=== PATIENT | male | born 1975 | race Caucasian/White ===

== ENCOUNTER 2022-06-27 00:32 | Emergency (ER) | payer OTHER ==
[~2022-06-27] VITALS: Ht 185.4 cm; Wt 81.0 kg
[2022-06-27] MEDS ORDERED: SIMETHICONE 80MG CHEW TAB PO ONE (01:55)
[2022-06-27] MEDS ORDERED: UNRESOLVED CLARIFICATION ENTRY XX STA (01:57)
[2022-06-27 02:08] LABS: BASO # 0.1 10^3/uL (0.0-0.2); BASO % 0.3 % (0.0-1.0); EOS # 0.6 10^3/uL (0.0-0.5); EOS % 3.1 % (0.0-3.0); HEMATOCRIT 45.9 % (42.0-52.0); HEMOGLOBIN 15.6 g/dl (13.5-17.5); LYMPH # 2.1 10^3/uL (1.5-5.0); LYMPH % 11.7 % (24.0-44.0); MEAN CORPUSCULAR HEMOGLOBIN 34.1 pg (27.0-33.0); MEAN CORPUSCULAR VOLUME 100.2 fl (80.0-96.0); MONO # 1.2 10^3/uL (0.0-0.8); MONO % 6.7 % (2.0-8.0); NEUTROPHILS # 13.7 10^3/uL (1.5-8.5); NEUTROPHILS % 77.9 % (36.0-66.0); PLATELET COUNT, AUTOMATED 241 10^3/uL (150-450); RED BLOOD COUNT 4.58 10^6/uL (4.30-6.10); WHITE BLOOD COUNT 17.7 10^3/uL (4.0-10.0)
[2022-06-27 02:11] LABS: BLOOD UREA NITROGEN 14 MG/DL (9-23); CALCIUM LEVEL 8.5 MG/DL (8.5-10.1); CARBON DIOXIDE LEVEL 28 MMOL/L (20-31); CHLORIDE LEVEL 102 MMOL/L (98-107); CK-MB VALUE MASS 7.1 NG/ML (<3.6); CREATININE FOR GFR 0.96 MG/DL (0.70-1.30); GLOMERULAR FILTRATION RATE > 60.0 (>60); GLUCOSE, FASTING 105 MG/DL (60-100); MAGNESIUM LEVEL 1.9 MG/DL (1.8-2.4); POTASSIUM SERUM 3.5 MMOL/L (3.5-5.1); SODIUM LEVEL 140 MMOL/L (136-145)
[2022-06-27 02:15] LABS: CPK CREATINE PHOSPHOKINASE 603 U/L (46-171); MB/CK RELATIVE INDEX 1.17 (< OR =4)
[2022-06-27] MEDS ORDERED: ISOVUE-370 76% 100ML VIAL As Ordered ONE (03:39)
[2022-06-27 03:42] LABS: CK-MB VALUE MASS 5.8 NG/ML (<3.6)
[2022-06-27 03:52] LABS: MB/CK RELATIVE INDEX 1.14 (< OR =4)
[2022-06-27 05:02] LABS: LIPASE 149 U/L (12-53)
[2022-06-27 05:04] LABS: ALBUMIN 4.1 G/DL (3.2-5.2); ALKALINE PHOSPHATASE 56 U/L (46-116); ALT/SGPT 31 U/L (7.0-40); AST/SGOT 50 U/L (<34); BILIRUBIN,DIRECT 0.1 MG/DL (<0.4); BILIRUBIN,TOTAL 0.4 MG/DL (0.3-1.2); TOTAL PROTEIN 6.9 G/DL (5.7-8.2)
[2022-06-27 05:15] VITALS: BP 120/59
== END 2022-06-27 05:40 | disposition home or self-care (01) ==
LOC: M ED 00:32
DX: M94.0 Chondrocostal junction syndrome [Tietze] (principal); I45.10 Unspecified right bundle-branch block; R94.31 Abnormal electrocardiogram [ECG] [EKG]; F17.210 Nicotine dependence, cigarettes, uncomplicated; Z98.890 Other specified postprocedural states

== ENCOUNTER 2024-12-14 09:25 | Emergency (ER) | payer OTHER, SELFPAY ==
[~2024-12-14] VITALS: Ht 185.4 cm; Wt 80.0 kg
[2024-12-14] MEDS: MORPHINE 4 MG/ML 1 ML VIAL IV ONE (12:08)
[2024-12-14] MEDS: ONDANSETRON 4MG 2ML VIAL IV ONE (12:08)
[2024-12-14 13:26] VITALS: BP 150/77; TEMP 97.9; O2SAT 97
== END 2024-12-14 13:31 | disposition short-term general hospital (02) ==
LOC: M ED 09:25
DX: S02.32XA Fracture of orbital floor, left side, initial encounter for closed fracture (principal); S02.2XXA Fracture of nasal bones, initial encounter for closed fracture; W22.8XXA Striking against or struck by other objects, initial encounter; Y92.9 Unspecified place or not applicable; Y93.89 Activity, other specified; Y99.9 Unspecified external cause status; F17.200 Nicotine dependence, unspecified, uncomplicated; J01.40 Acute pansinusitis, unspecified
CPT/HCPCS: 70450; 70486; 96374; 96375; 99284; J2405